=== PATIENT | male | born 1970 | race Caucasian/White ===

== ENCOUNTER 2023-08-27 23:02 | Emergency (ER) | payer OTHER, SELFPAY ==
[2023-08-27] MEDS ORDERED: Sodium Chloride 0.9% 1,000 ML ONE (23:18)
[2023-08-27] MEDS ORDERED: Lidocaine 1% (PF) 30 ML VIAL ONE (23:18)
[2023-08-27] MEDS ORDERED: Boostrix 0.5 ML (Tdap) VIAL (>/=7 yrs of age) ONE (23:25)
[2023-08-27] MEDS ORDERED: cefTRIAXone (ROCEPHIN) 1 GM VIAL ONE (23:25)
== END 2023-08-27 23:57 | disposition home or self-care (01) ==
LOC: MADERS 23:02
DX: S81.811A Laceration without foreign body, right lower leg, initial encounter (principal); F17.220 Nicotine dependence, chewing tobacco, uncomplicated; Z23 Encounter for immunization; W54.0XXA Bitten by dog, initial encounter
CPT/HCPCS: 12002; 90471; 90715; 96372; J0696; J2001; J7050